=== PATIENT | female | born 1970 | race Caucasian/White ===

== ENCOUNTER 2016-08-21 16:22 | Emergency (ER) | payer OTHER ==
[~2016-08-21] VITALS: Ht 165.1 cm; Wt 70.3 kg
[~2016-08-21 16:22] MED LIST: CYCLOBENZAPRINE10 MG PO; DAYPRO600 M1 PO; FLAGYL500 MG PO; IBU800 M1 PO; NKHM; PERCOCET 325 MG1 TA2 PO; PREDNISONE20 M1 PO; ROBAXIN750 MG PO; VICO10300 PO; ZOFRAN ODT4 MG SL
[2016-08-21] MEDS ORDERED: PREDNISONE10 MG PO (17:55)
[2016-08-21] MEDS ORDERED: CYCLOBENZAPRINE5 M3 PO (17:55)
== END 2016-08-21 17:58 | disposition home or self-care (01) ==
LOC: ED 16:22
DX: M54.12 Radiculopathy, cervical region (principal); F17.200 Nicotine dependence, unspecified, uncomplicated

== ENCOUNTER → 2016-10-09 | Outpatient (CLI) | payer OTHER ==
[~2016-10-09] MED LIST changes: +CYCLOBENZAPRINE5 M3 PO; +OMEPRAZOLE40 MG PO; +PREDNISONE10 MG PO
--- NOTE | ~2016-10-09 | ST ---
[place], [place] EXERCISE STRESS TEST REPORT NAME[id number] UNIT #: [id number] ROOM: DOCTOR: CARI BARROW [facility],ARNAUD BIRTHDATE: [birth year] DOS: 10/09/2016 LEXISCAN WITH SESTAMIBI The patient received Lexiscan 0.4 mg over 10 seconds. Heart rate is 90. Frequent PVCs. No conclusive electrocardiographic changes or myocardial ischemia noted. No complications noted. Myocardial perfusion scan to follow. ARNAUD ALCALA MD CM:STRESS:EXERCISE STRESS TEST REPORT [id number] ARNAUD ALCALA MD [facility]
== END | disposition home or self-care (01) ==
LOC: CARD 01:41
DX: R07.2 Precordial pain (principal); R53.81 Other malaise; R07.9 Chest pain, unspecified

== ENCOUNTER → 2016-11-25 | Outpatient (CLI) | payer OTHER ==
[2016-11-25 16:28] LABS: BASO % 0.7 % (0.0-1.0); EOS # 0.1 10*3/uL (0.0-0.4); EOS % 1.2 % (1.0-4.0); HEMATOCRIT 44.4 % (37.0-47.0); LYMPH # 2.1 10*3/uL (1.3-4.4); LYMPH % 48.5 % (27.0-41.0); MEAN CELL VOLUME 98.9 fl (81.0-99.0); MEAN CORPUSCULAR HGB 33.4 pg (27.0-31.0); MEAN CORPUSCULAR HGB CONC 33.8 g/dl (33.0-37.0); MEAN PLATELET VOLUME 13.5 fl (9.6-12.3); MONO # 0.3 10*3/uL (0.1-1.0); NEUT # 1.8 10*3/uL (2.3-7.9); NEUT % 42.4 % (47.0-73.0); PLATELET COUNT AUTOMATED 99 10*3/uL (130-400); RED BLOOD COUNT 4.49 10*6/uL (4.10-5.10); RED CELL DISTRI WIDTH 12.1 % (0-14.5); WHITE BLOOD COUNT 4.3 10*3/uL (4.8-10.8)
[2016-11-25 17:00] LABS: BUN 9 mg/dl (7-24); CARBON DIOXIDE 32 mmol/L (21-32); CHLORIDE 104 mmol/L (98-107); EST GLOM FILT AFRICAN AMERICAN > 60 ml/min; GLUCOSE 103 mg/dL (65-99); POTASSIUM 5.3 mmol/L (3.5-5.1); SODIUM 138 mmol/L (136-145)
== END | disposition home or self-care (01) ==
LOC: LAB 13:38
PROVIDERS: Orthopaedic Surgery
DX: Z01.818 Encounter for other preprocedural examination (principal); G56.02 Carpal tunnel syndrome, left upper limb; R06.02 Shortness of breath; F17.200 Nicotine dependence, unspecified, uncomplicated; R05 Cough

== ENCOUNTER → 2016-12-02 | Day surgery (SDC) | payer OTHER ==
[~2016-12-02] VITALS: Ht 165.1 cm; Wt 65.8 kg
[~2016-12-02] MED LIST changes: +Percocet 325 MG1 TAB PO; +ZOFRAN4 MG PO
[2016-12-02 09:20] LABS: BASO % 0.9 % (0.0-1.0); EOS # 0.1 10*3/uL (0.0-0.4); EOS % 1.5 % (1.0-4.0); HEMATOCRIT 44.1 % (37.0-47.0); HEMOGLOBIN 14.7 g/dl (12.0-16.0); LYMPH # 1.8 10*3/uL (1.3-4.4); LYMPH % 39.9 % (27.0-41.0); MEAN CELL VOLUME 100.2 fl (81.0-99.0); MEAN CORPUSCULAR HGB 33.4 pg (27.0-31.0); MEAN CORPUSCULAR HGB CONC 33.3 g/dl (33.0-37.0); MONO # 0.3 10*3/uL (0.1-1.0); NEUT # 2.3 10*3/uL (2.3-7.9); NEUT % 50.5 % (47.0-73.0); PLATELET COUNT AUTOMATED 105 10*3/uL (130-400); RED CELL DISTRI WIDTH 12.1 % (0-14.5); WHITE BLOOD COUNT 4.5 10*3/uL (4.8-10.8)
[2016-12-02 09:48] VITALS: BP 132/79
[2016-12-02 11:22] VITALS: BP 104/55
[2016-12-02 11:37] VITALS: BP 119/71
[2016-12-02 11:50] VITALS: BP 109/81
[2016-12-02 12:06] VITALS: BP 140/75
[2016-12-02 12:12] VITALS: BP 109/81
== END | disposition home or self-care (01) ==
LOC: SDC 11-25 13:15
PROVIDERS: Orthopaedic Surgery
DX: G56.02 Carpal tunnel syndrome, left upper limb (principal); F41.9 Anxiety disorder, unspecified; F32.9 Major depressive disorder, single episode, unspecified; F17.210 Nicotine dependence, cigarettes, uncomplicated; K21.9 Gastro-esophageal reflux disease without esophagitis; Z98.890 Other specified postprocedural states; Z98.51 Tubal ligation status

== ENCOUNTER → 2019-01-17 | Outpatient (CLI) | payer MEDICAID | END | disposition home or self-care (01) | LOC: MRI 12:34 | DX: M48.061 Spinal stenosis, lumbar region without neurogenic claudication (principal) ==

== ENCOUNTER → 2020-06-20 | Outpatient (CLI) | payer OTHER ==
[~2020-06-20] MED LIST changes: +ROBAXIN-750750 MG PO
[2020-06-20 14:50] LABS: HEMATOCRIT 40.4 % (37.0-47.0); MEAN CORPUSCULAR HGB 33.5 pg (27.0-31.0); MEAN CORPUSCULAR HGB CONC 33.2 g/dl (33.0-37.0); PLATELET COUNT AUTOMATED 74 10*3/uL (130-400); RED CELL DISTRI WIDTH 13.4 % (0-14.5); RETICULOCYTE % 1.24 % (0.50-2.50); WHITE BLOOD COUNT 5.7 10*3/uL (4.8-10.8)
[2020-06-20 14:51] LABS: BILIRUBIN Negative (Negative); BLOOD Negative (Negative); CLARITY Clear (Clear); COLOR Yellow (Yellow); GLUCOSE Negative (Negative); KETONE Negative (Negative); LEUKO ESTERASE Negative (Negative); NITRITE Negative (Negative); SPECIFIC GRAVITY 1.015 (1.001-1.030)
[2020-06-20 15:05] LABS: BACTERIA TRACE; EPITHELIAL CELLS 0-2; WBC 0-2 wbc/hpf (0-5)
[2020-06-20 15:21] LABS: BUN 10 mg/dl (7-24); CHLORIDE 106 mmol/L (98-107); CHOLESTEROL 111 mg/dL (<200); POTASSIUM 3.9 mmol/L (3.5-5.1); SODIUM 138 mmol/L (136-145)
[2020-06-20 15:26] LABS: ATYPICAL LYMPHS 6 % (0-0); BASOPHILS 1 % (0-1); PLATELET SUFFICIENCY LOW (NORMAL); TOTAL CELLS COUNTED 100 #CELLS
[2020-06-20 15:31] LABS: ALKALINE PHOSPHATASE 166 U/L (45-117); CREATININE 0.81 mg/dL (0.55-1.02); GAMMA GLUTAMYL TRANSPEPTIDASE 142 U/L (5-55); HDL CHOLESTEROL 29 mg/dl (40-60); IRON 183 ug/dL (50-170); LDL CHOLESTEROL 64 mg/dL (9-159); SGOT/AST 118 IU/L (3-35); SGPT/ALT 131 U/L (12-78); TOTAL IRON BINDING CAPACITY 357 ug/dl (250-450); TOTAL PROTEIN 7.9 gm/dL (6.4-8.2); TRIGLYCERIDES 88 mg/dl (<150); VLDL CHOLESTEROL 18 mg/dL (6-40)
[2020-06-20 16:15] LABS: VITAMIN D, 25-HYDROXY 23.8 ng/mL (30-100)
[2020-06-20 16:16] LABS: FERRITIN 459.2 ng/mL (10.0-291.0)
== END | disposition home or self-care (01) ==
LOC: LAB 13:45
PROVIDERS: ATTEND Family Medicine
DX: E78.5 Hyperlipidemia, unspecified (principal); R53.83 Other fatigue; E55.9 Vitamin D deficiency, unspecified; R79.89 Other specified abnormal findings of blood chemistry

== ENCOUNTER 2020-07-01 12:54 | Emergency (ER) | payer OTHER ==
[~2020-07-01] VITALS: Wt 124.7 kg
[~2020-07-01 12:54] MED LIST changes: -ROBAXIN-750750 MG PO
[2020-07-01] MEDS ORDERED: ROBAXIN-750750 MG PO (15:14)
[2020-07-01] MEDS ORDERED: PREDNISONE20 M1 PO (15:14)
== END 2020-07-01 15:44 | disposition home or self-care (01) ==
LOC: ED 12:54
DX: S39.013A Strain of muscle, fascia and tendon of pelvis, initial encounter (principal); M70.71 Other bursitis of hip, right hip; F32.9 Major depressive disorder, single episode, unspecified; F41.9 Anxiety disorder, unspecified; K21.9 Gastro-esophageal reflux disease without esophagitis; F17.200 Nicotine dependence, unspecified, uncomplicated; Z79.899 Other long term (current) drug therapy; Z98.51 Tubal ligation status; Z90.721 Acquired absence of ovaries, unilateral; W54.1XXA Struck by dog, initial encounter; Y93.89 Activity, other specified; Y92.89 Other specified places as the place of occurrence of the external cause; Y99.8 Other external cause status

== ENCOUNTER → 2021-09-11 | Outpatient (CLI) | payer OTHER ==
[~2021-09-11] MED LIST changes: +ROBAXIN-750750 MG PO
== END | disposition home or self-care (01) ==
LOC: RAD 09:48
PROVIDERS: ATTEND Family Medicine
DX: M51.37 Other intervertebral disc degeneration, lumbosacral region (principal); M51.34 Other intervertebral disc degeneration, thoracic region; M50.30 Other cervical disc degeneration, unspecified cervical region